=== PATIENT | male | born 2000 | race Caucasian/White ===

== ENCOUNTER 2019-10-15 14:30 | Emergency (ER) | payer SELFPAY ==
--- NOTE | 2019-10-15 16:42 | EDM.PDOCBH ---
ED HPI GENERAL MEDICAL PROBLEM - General Chief Complaint: Behavioral/Psych Stated Complaint: Mental Eval Time Seen by Provider: 10/15/19 14:35 Source of Information: Reports: Patient History Limitations: Reports: No Limitations - History of Present Illness INITIAL COMMENTS - FREE TEXT/NARRATIVE: Patient presented to the ED by law enforcement for a psych evaluation. Patient has a history of unknown psych disorder and he doesn't know what his diagnosis was and used to take medications but quit taking it almost a year ago. He jumps from topic to the other, looks anxious. He denies any suicidal and homicidal ideation. - Related Data Allergies Allergy/AdvReac Type Severity Reaction Status Date / Time No Known Allergies Allergy Verified 10/15/19 15:01 Home Meds: Home Meds Divalproex Sodium [Divalproex Sodium ER] 500 mg PO BID #60 tab.sr.24h 10/15/19 [ Rx] hydrOXYzine pamoate [Vistaril] 50 mg PO Q6H PRN #60 cap 10/15/19 [Rx] risperiDONE [Risperdal] 2 mg PO BEDTIME #30 tablet 10/15/19 [Rx] Past Medical History Psychiatric History: Reports: ADHD, Anxiety, Depression, Panic Attack Social & Family History - Family History Family Medical History: Noncontributory - Tobacco Use Smoking Status *Q: Current Every Day Smoker Years of Tobacco use: 4 Packs/Tins Daily: 1 - Caffeine Use Caffeine Use: Reports: Coffee, Soda, Tea - Recreational Drug Use Recreational Drug Use: Yes Recreational Drug Type: Reports: Marijuana/Hashish Recreational Drug Use Frequency: Weekly ED ROS GENERAL - Review of Systems Review Of Systems: See Below Constitutional: Reports: No Symptoms HEENT: Reports: No Symptoms Respiratory: Reports: No Symptoms Cardiovascular: Reports: No Symptoms Endocrine: Reports: No Symptoms GI/Abdominal: Reports: No Symptoms : Reports: No Symptoms Musculoskeletal: Reports: No Symptoms Skin: Reports: No Symptoms Neurological: Reports: No Symptoms Psychiatric: Reports: Anxiety, Depression, Mood Lability. Denies: Hallucinations, Homicidal Ideation, Suicidal Ideation ED EXAM, BEHAVIORAL HEALTH - Physical Exam Exam: See Below Exam Limited By: No Limitations General Appearance: Alert, No Apparent Distress Ears: Normal External Exam Nose: Normal Inspection, Normal Mucosa Throat/Mouth: Normal Inspection, Normal Lips, Normal Teeth Head: Atraumatic, Normocephalic Neck: Normal Inspection, Non-Tender, Full Range of Motion Respiratory/Chest: No Respiratory Distress, Lungs Clear, Normal Breath Sounds Cardiovascular: Normal Peripheral Pulses, Regular Rate, Rhythm, No Edema, No Gallop, No JVD, No Murmur GI/Abdominal: Normal Bowel Sounds, Soft, Non-Tender, No Organomegaly Back Exam: Normal Inspection, Full Range of Motion Extremities: Normal Inspection, Normal Range of Motion, Non-Tender Neurological: Alert, Normal Cognition COURSE, BEHAVIORAL HEALTH COMP - Course Vital Signs: Last Vital Signs Temp 36.8 C 10/15/19 14:30 Pulse 71 10/15/19 14:30 Resp 18 10/15/19 14:30 BP 134/71 10/15/19 14:30 Pulse Ox 100 10/15/19 14:30 Orders, Labs, Meds: Laboratory Tests 10/15/19 10/15/19 10/15/19 Range/Units 15:32 15:32 15:32 WBC 6.7 (4.5-12.0) X10-3/uL RBC 5.33 (4.30-5.75) x10(6)uL Hgb 16.3 (13.5-17.8) g/dL Hct 47.5 (30.0-51.3) % MCV 89.1 (80-96) fL MCH 30.5 (27.7-33.6) pg MCHC 34.2 (32.2-35.4) g/dL RDW 12.6 (11.5-15.5) % Plt Count 348 (125-369) X10(3)uL MPV 7.4 (7.4-10.4) fL Neut % (Auto) 54.6 (46-82) % Lymph % (Auto) 34.6 (13-37) % Wells % (Auto) 6.7 (4-12) % Eos % (Auto) 2 (1.0-5.0) % Baso % (Auto) 2 (0-2) % Neut # (Auto) 3.7 (1.6-8.3) # Lymph # (Auto) 2.3 (0.6-5.0) # Wells # (Auto) 0.5 (0.0-1.3) # Eos # (Auto) 0.1 (0.0-0.8) # Baso # (Auto) 0.1 (0.0-0.2) # Sodium 142 (135-145) mmol/L Potassium 3.8 (3.5-5.3) mmol/L Chloride 102 (100-110) mmol/L Carbon Dioxide 27 (21-32) mmol/L BUN 8 (7-18) mg/dL Creatinine 1.0 (0.70-1.30) mg/dL Est Cr Clr Drug Dosing 120.65 mL/min Estimated GFR (MDRD) > 60 (>60) BUN/Creatinine Ratio 8.0 L (9-20) Glucose 79 L (80-116) mg/dL Calcium 9.2 (8.6-10.2) mg/dL Total Bilirubin 0.6 (0.1-1.3) mg/dL AST 14 (5-25) IU/L ALT 16 (12-36) U/L Alkaline Phosphatase 87 (56-112) IU/L Total Protein 7.8 (6.0-8.0) g/dL Albumin 4.4 (3.5-5.2) g/dL Globulin 3.4 g/dL Albumin/Globulin Ratio 1.3 TSH, Ultra Sensitive 2.14 (0.36-3.74) IU/mL Urine Color (YELLOW) Urine Appearance (CLEAR) Urine pH (5.0-6.5) Ur Specific [place] (1.010-1.025) Urine Protein (NEGATIVE) mg/dL Urine Glucose (UA) (NORMAL) mg/dL Urine Ketones (NEGATIVE) mg/dL Urine Occult Blood (NEGATIVE) Urine Nitrite (NEGATIVE) Urine Bilirubin (NEGATIVE) Urine Urobilinogen (NEGATIVE) mg/dL Ur Leukocyte Esterase (NEGATIVE) Urine RBC (0-5) Urine WBC (0-5) Ur Squamous Epith Cells (NS,R,O) Urine Bacteria (NS) Urine Opiates Screen (NEGATIVE) Ur Oxycodone Screen (NEGATIVE) Ur Propoxyphene Screen (NEGATIVE) Ur Barbituates Screen (NEGATIVE) Ur Tricyclics Screen (NEGATIVE) Ur Phencyclidine Scrn (NEGATIVE) Ur Amphetamine Screen (NEGATIVE) Urine MDMA Screen (NEGATIVE) U Benzodiazepines Scrn (NEGATIVE) U Cocaine Metab Screen (NEGATIVE) U Marijuana (THC) Screen (NEGATIVE) Ethyl Alcohol < 0.03 (<0.03) % 10/15/19 10/15/19 Range/Units 15:43 15:45 WBC (4.5-12.0) X10-3/uL RBC (4.30-5.75) x10(6)uL Hgb (13.5-17.8) g/dL Hct (30.0-51.3) % MCV (80-96) fL MCH (27.7-33.6) pg MCHC (32.2-35.4) g/dL RDW (11.5-15.5) % Plt Count (125-369) X10(3)uL MPV (7.4-10.4) fL Neut % (Auto) (46-82) % Lymph % (Auto) (13-37) % Wells % (Auto) (4-12) % Eos % (Auto) (1.0-5.0) % Baso % (Auto) (0-2) % Neut # (Auto) (1.6-8.3) # Lymph # (Auto) (0.6-5.0) # Wells # (Auto) (0.0-1.3) # Eos # (Auto) (0.0-0.8) # Baso # (Auto) (0.0-0.2) # Sodium (135-145) mmol/L Potassium (3.5-5.3) mmol/L Chloride (100-110) mmol/L Carbon Dioxide (21-32) mmol/L BUN (7-18) mg/dL Creatinine (0.70-1.30) mg/dL Est Cr Clr Drug Dosing mL/min Estimated GFR (MDRD) (>60) BUN/Creatinine Ratio (9-20) Glucose (80-116) mg/dL Calcium (8.6-10.2) mg/dL Total Bilirubin (0.1-1.3) mg/dL AST (5-25) IU/L ALT (12-36) U/L Alkaline Phosphatase (56-112) IU/L Total Protein (6.0-8.0) g/dL Albumin (3.5-5.2) g/dL Globulin g/dL Albumin/Globulin Ratio TSH, Ultra Sensitive (0.36-3.74) IU/mL Urine Color Yellow (YELLOW) Urine Appearance Clear (CLEAR) Urine pH 8.0 H (5.0-6.5) Ur Specific [place] 1.010 (1.010-1.025) Urine Protein Negative (NEGATIVE) mg/dL Urine Glucose (UA) Normal (NORMAL) mg/dL Urine Ketones 15 H (NEGATIVE) mg/dL Urine Occult Blood Negative (NEGATIVE) Urine Nitrite Negative (NEGATIVE) Urine Bilirubin Negative (NEGATIVE) Urine Urobilinogen Normal (NEGATIVE) mg/dL Ur Leukocyte Esterase Negative (NEGATIVE) Urine RBC Not seen (0-5) Urine WBC 0-5 (0-5) Ur Squamous Epith Cells Not seen (NS,R,O) Urine Bacteria Rare H (NS) Urine Opiates Screen Negative (NEGATIVE) Ur Oxycodone Screen Negative (NEGATIVE) Ur Propoxyphene Screen Negative (NEGATIVE) Ur Barbituates Screen Negative (NEGATIVE) Ur Tricyclics Screen Negative (NEGATIVE) Ur Phencyclidine Scrn Negative (NEGATIVE) Ur Amphetamine Screen Negative (NEGATIVE) Urine MDMA Screen Negative (NEGATIVE) U Benzodiazepines Scrn Negative (NEGATIVE) U Cocaine Metab Screen Negative (NEGATIVE) U Marijuana (THC) Screen Negative (NEGATIVE) Ethyl Alcohol (<0.03) % Medications Discontinued Medications Generic Name Dose Route Start Last Admin Trade Name Freq PRN Reason Stop Dose Admin Divalproex Sodium 500 mg 10/15/19 17:45 10/15/19 18:01 Depakote PO 10/15/19 17:46 500 mg ONETIME ONE Administration Hydroxyzine HCl 25 mg 10/15/19 17:45 10/15/19 18:01 Atarax PO 10/15/19 17:46 25 mg ONETIME ONE Administration Risperidone 2 mg 10/15/19 17:47 10/15/19 18:01 Risperidal PO 10/15/19 17:48 2 mg ONETIME ONE Administration Re-Assessment/Re-Exam: Labs reviewed and discussed with patient. Psych consult was done with Abbi Leiva and suggested for patient to be treated outpatient since he didn't satisfy the criteria for inpatient psych treatment. first dose of his Risperdal 2 mg, divalproic acid ER 500 mg, vistaril 25 mg po was given in the ED. Departure - Departure Time of Disposition: 14:35 Disposition: Home, Self-Care 01 Condition: Good Clinical Impression: Anxiety, Depression, PTSD (post-traumatic stress disorder), Bipolar 1 disorder , MYKEL (generalized anxiety disorder) - Discharge Information Prescriptions: Divalproex Sodium [Divalproex Sodium ER] 500 mg PO BID #60 tab.sr.24h hydrOXYzine pamoate [Vistaril] 50 mg PO Q6H PRN #60 cap PRN Reason: Anxiety risperiDONE [Risperdal] 2 mg PO BEDTIME #30 tablet Instructions: Generalized Anxiety Disorder, Adult, Major Depressive Disorder, Adult, [id number] Referrals: Phyllis Stockton MD [Primary Care Provider] - Forms: ED Department Discharge Additional Instructions: please read discharge instructions on anxiety and depression follow up with your doctor this week or return to the ED if you are suicidal or homicidal risperidone 2 mg at bed time divalproic acid 500 mg twice daily vistaril 50 mg every 6 hours as needed for anxiety and sleep Sepsis Event Note - Evaluation Sepsis Screening Result: No Definite Risk - Focused Exam Date Exam was Performed: 10/16/19 Time Exam was Performed: 08:37
[2019-10-15] MEDS ORDERED: Divalproex Sodium Delayed-Release 500 MG Tab.CR PO ONE (17:45)
[2019-10-15] MEDS ORDERED: hydrOXYzine HCl 25 MG Tab PO ONE (17:45)
[2019-10-15] MEDS ORDERED: risperiDONE 1 MG Tab PO ONE (17:47)
== END 2019-10-15 18:00 | disposition home or self-care (01) ==
LOC: FB.ED 14:30
DX: F31.9 Bipolar disorder, unspecified (principal); F41.1 Generalized anxiety disorder; F43.10 Post-traumatic stress disorder, unspecified
CPT/HCPCS: 36415; 80053; 80305; 80307; 81001; 84443; 85025; 99283; 99285; A9270

== ENCOUNTER 2019-10-18 19:53 | Emergency (ER) | payer SELFPAY ==
--- NOTE | 2019-10-18 20:45 | EDM.PDOCBH ---
ED HPI GENERAL MEDICAL PROBLEM - General Chief Complaint: Behavioral/Psych Stated Complaint: MENTAL HEALTH Time Seen by Provider: 10/18/19 20:38 Source of Information: Reports: Patient History Limitations: Reports: No Limitations - History of Present Illness INITIAL COMMENTS - FREE TEXT/NARRATIVE: Patient has a h/o Bipolar disorder, ADHD, Anxiety, and Depression. He called the ED requesting assistance because he thought he may be having a panic attack. The ED RN called the police department, who then escorted the patient to the ED. Patient states he has had suicidal thoughts most days, most recently today. He has specific thoughts of cutting himself. The patient was treated in the ED on 10/15/19, and was prescribed Divalproex, Vistaril, and Risperdal. He did not fill the prescriptions, but states that he now wishes to "get back on his meds." Patient has not taken medications regularly x 3 months. - Related Data Allergies Allergy/AdvReac Type Severity Reaction Status Date / Time No Known Allergies Allergy Verified 10/18/19 20:17 Home Meds: Home Meds Divalproex Sodium [Divalproex Sodium ER] 500 mg PO BID #60 tab.sr.24h 10/15/19 [ Rx] hydrOXYzine pamoate [Vistaril] 50 mg PO Q6H PRN #60 cap 10/15/19 [Rx] risperiDONE [Risperdal] 2 mg PO BEDTIME #30 tablet 10/15/19 [Rx] Past Medical History Psychiatric History: Reports: ADHD, Anxiety, Bipolar, Depression, Panic Attack Social & Family History - Family History Family Medical History: Noncontributory - Tobacco Use Smoking Status *Q: Current Every Day Smoker Years of Tobacco use: 4 Packs/Tins Daily: 0.5 - Caffeine Use Caffeine Use: Reports: Coffee, Soda, Tea - Alcohol Use Alcohol Use History: Yes Alcohol Use in Last Twelve Months: Yes Alcohol Use Frequency: Rarely - Recreational Drug Use Recreational Drug Use: No ED ROS GENERAL - Review of Systems Review Of Systems: Comprehensive ROS is negative, except as noted in HPI. ED EXAM, BEHAVIORAL HEALTH - Physical Exam Exam: See Below Exam Limited By: No Limitations General Appearance: Alert, WD/WN, No Apparent Distress, Anxious Eye Exam: Bilateral Eye: EOMI, PERRL Ears: Normal External Exam Nose: Normal Inspection Throat/Mouth: Normal Inspection, No Airway Compromise Head: Atraumatic, Normocephalic Neck: Full Range of Motion Respiratory/Chest: No Respiratory Distress, Lungs Clear, Normal Breath Sounds Cardiovascular: Regular Rate, Rhythm, No Murmur GI/Abdominal: No Distention Back Exam: Full Range of Motion Extremities: Normal Range of Motion Neurological: Alert, Normal Cognition, No Motor/Sensory Deficits, Oriented x 3 Psychiatric: Alert, Oriented, Flat Affect Skin Exam: Warm, Dry, Intact COURSE, BEHAVIORAL HEALTH COMP - Course Vital Signs: Last Vital Signs Temp 36.7 C 10/18/19 23:00 Pulse 78 10/18/19 23:00 Resp 15 10/18/19 23:00 BP 131/61 10/18/19 23:00 Pulse Ox 100 10/18/19 23:00 Orders, Labs, Meds: Laboratory Tests 10/18/19 10/18/19 10/18/19 Range/Units 20:10 20:10 20:44 WBC 9.1 (4.5-12.0) X10-3/uL RBC 5.25 (4.30-5.75) x10(6)uL Hgb 15.9 (13.5-17.8) g/dL Hct 47.2 (30.0-51.3) % MCV 89.9 (80-96) fL MCH 30.3 (27.7-33.6) pg MCHC 33.7 (32.2-35.4) g/dL RDW 12.9 (11.5-15.5) % Plt Count 357 (125-369) X10(3)uL MPV 7.5 (7.4-10.4) fL Neut % (Auto) 69.5 (46-82) % Lymph % (Auto) 21.7 (13-37) % [place] % (Auto) 4.5 (4-12) % Eos % (Auto) 1 (1.0-5.0) % Baso % (Auto) 3 H (0-2) % Neut # (Auto) 6.3 (1.6-8.3) # Lymph # (Auto) 2.0 (0.6-5.0) # [place] # (Auto) 0.4 (0.0-1.3) # Eos # (Auto) 0.1 (0.0-0.8) # Baso # (Auto) 0.3 H (0.0-0.2) # Sodium (135-145) mmol/L Potassium (3.5-5.3) mmol/L Chloride (100-110) mmol/L Carbon Dioxide (21-32) mmol/L BUN (7-18) mg/dL Creatinine (0.70-1.30) mg/dL Est Cr Clr Drug Dosing mL/min Estimated GFR (MDRD) (>60) BUN/Creatinine Ratio (9-20) Glucose (80-116) mg/dL Calcium (8.6-10.2) mg/dL Total Bilirubin (0.1-1.3) mg/dL AST (5-25) IU/L ALT (12-36) U/L Alkaline Phosphatase (56-112) IU/L Total Protein (6.0-8.0) g/dL Albumin (3.5-5.2) g/dL Globulin g/dL Albumin/Globulin Ratio TSH, Ultra Sensitive (0.36-3.74) IU/mL Urine Color Yellow (YELLOW) Urine Appearance Clear (CLEAR) Urine pH 7.0 H (5.0-6.5) Ur Specific [place] 1.005 L (1.010-1.025) Urine Protein Negative (NEGATIVE) mg/dL Urine Glucose (UA) Normal (NORMAL) mg/dL Urine Ketones 15 H (NEGATIVE) mg/dL Urine Occult Blood Negative (NEGATIVE) Urine Nitrite Negative (NEGATIVE) Urine Bilirubin Negative (NEGATIVE) Urine Urobilinogen Normal (NEGATIVE) mg/dL Ur Leukocyte Esterase Negative (NEGATIVE) Urine RBC Not seen (0-5) Urine WBC 0-5 (0-5) Ur Squamous Epith Cells Rare (NS,R,O) Urine Bacteria Rare H (NS) Salicylates (<2.8) mg/dL Urine Opiates Screen Negative (NEGATIVE) Ur Oxycodone Screen Negative (NEGATIVE) Ur Propoxyphene Screen Negative (NEGATIVE) Acetaminophen (<2) ug/mL Ur Barbituates Screen Negative (NEGATIVE) Ur Tricyclics Screen Negative (NEGATIVE) Ur Phencyclidine Scrn Negative (NEGATIVE) Ur Amphetamine Screen Negative (NEGATIVE) Urine MDMA Screen Negative (NEGATIVE) U Benzodiazepines Scrn Negative (NEGATIVE) U Cocaine Metab Screen Negative (NEGATIVE) U Marijuana (THC) Screen Negative (NEGATIVE) Ethyl Alcohol (<0.03) % 10/18/19 10/18/19 Range/Units 20:44 20:44 WBC (4.5-12.0) X10-3/uL RBC (4.30-5.75) x10(6)uL Hgb (13.5-17.8) g/dL Hct (30.0-51.3) % MCV (80-96) fL MCH (27.7-33.6) pg MCHC (32.2-35.4) g/dL RDW (11.5-15.5) % Plt Count (125-369) X10(3)uL MPV (7.4-10.4) fL Neut % (Auto) (46-82) % Lymph % (Auto) (13-37) % [place] % (Auto) (4-12) % Eos % (Auto) (1.0-5.0) % Baso % (Auto) (0-2) % Neut # (Auto) (1.6-8.3) # Lymph # (Auto) (0.6-5.0) # [place] # (Auto) (0.0-1.3) # Eos # (Auto) (0.0-0.8) # Baso # (Auto) (0.0-0.2) # Sodium 143 (135-145) mmol/L Potassium 3.9 (3.5-5.3) mmol/L Chloride 102 (100-110) mmol/L Carbon Dioxide 27 (21-32) mmol/L BUN 5 L (7-18) mg/dL Creatinine 1.0 (0.70-1.30) mg/dL Est Cr Clr Drug Dosing 119.95 mL/min Estimated GFR (MDRD) > 60 (>60) BUN/Creatinine Ratio 5.0 L (9-20) Glucose 89 (80-116) mg/dL Calcium 9.4 (8.6-10.2) mg/dL Total Bilirubin 0.6 (0.1-1.3) mg/dL AST 14 (5-25) IU/L ALT 15 (12-36) U/L Alkaline Phosphatase 78 (56-112) IU/L Total Protein 7.6 (6.0-8.0) g/dL Albumin 4.4 (3.5-5.2) g/dL Globulin 3.2 g/dL Albumin/Globulin Ratio 1.4 TSH, Ultra Sensitive 1.34 (0.36-3.74) IU/mL Urine Color (YELLOW) Urine Appearance (CLEAR) Urine pH (5.0-6.5) Ur Specific [place] (1.010-1.025) Urine Protein (NEGATIVE) mg/dL Urine Glucose (UA) (NORMAL) mg/dL Urine Ketones (NEGATIVE) mg/dL Urine Occult Blood (NEGATIVE) Urine Nitrite (NEGATIVE) Urine Bilirubin (NEGATIVE) Urine Urobilinogen (NEGATIVE) mg/dL Ur Leukocyte Esterase (NEGATIVE) Urine RBC (0-5) Urine WBC (0-5) Ur Squamous Epith Cells (NS,R,O) Urine Bacteria (NS) Salicylates 3.6 (<2.8) mg/dL Urine Opiates Screen (NEGATIVE) Ur Oxycodone Screen (NEGATIVE) Ur Propoxyphene Screen (NEGATIVE) Acetaminophen < 2 L (<2) ug/mL Ur Barbituates Screen (NEGATIVE) Ur Tricyclics Screen (NEGATIVE) Ur Phencyclidine Scrn (NEGATIVE) Ur Amphetamine Screen (NEGATIVE) Urine MDMA Screen (NEGATIVE) U Benzodiazepines Scrn (NEGATIVE) U Cocaine Metab Screen (NEGATIVE) U Marijuana (THC) Screen (NEGATIVE) Ethyl Alcohol < 0.03 (<0.03) % Medications Discontinued Medications Generic Name Dose Route Start Last Admin Trade Name Freq PRN Reason Stop Dose Admin Hydroxyzine Pamoate 50 mg 10/18/19 22:48 10/18/19 22:54 Vistaril PO 10/18/19 22:49 50 mg ONETIME ONE Administration Risperidone 2 mg 10/18/19 23:28 10/19/19 01:25 Risperidal PO 10/18/19 23:29 Not Given .ONCE ONE Risperidone Confirm 10/18/19 23:37 10/19/19 01:25 Risperidal Administered 10/18/19 23:38 Not Given Dose 2 mg .ROUTE .STK-MED ONE Risperidone 2 mg 10/18/19 23:45 10/18/19 23:44 Risperidal PO 10/18/19 23:46 2 mg ONETIME ONE Administration Re-Assessment/Re-Exam: 8699: Patient was initially willing to be admitted voluntarily to an inpatient psychiatric facility for evaluation and treatment, however he changed his mind and decided he would do this at a later date. Because the patient stated to the ED RN and myself that he was having suicidal thoughts, he is placed on an Emergency Hold. 0430: Dr. Gold accepts patient for transfer to [facility] in [place], [place]. Medical Clearance: 10/18/19 21:13 Patient is medically cleared for psychiatric evaluation and treatment. Departure - Departure Time of Disposition: 04:35 Disposition: DC/Tfer to Psych Hosp/Unit 65 Condition: Fair Clinical Impression: Suicidal ideation - Discharge Information *PRESCRIPTION DRUG MONITORING PROGRAM REVIEWED*: Yes *COPY OF PRESCRIPTION DRUG MONITORING REPORT IN PATIENT SEAN: Not Applicable Referrals: PCP,None [Primary Care Provider] - Forms: ED Department Discharge Sepsis Event Note - Evaluation Sepsis Screening Result: No Definite Risk - Focused Exam Vital Signs: Vital Signs Temp Pulse Resp BP BP Pulse Ox 10/18/19 23:00 36.7 C 78 15 131/61 100 10/18/19 19:55 36.8 C 86 16 122/72 98 Date Exam was Performed: 10/19/19 Time Exam was Performed: 04:27
[2019-10-18 21:03] LABS: ACETAMINOPHEN < 2 ug/mL (<2)
[2019-10-18] MEDS ORDERED: risperiDONE 1 MG Tab PO ONE (23:28)
[2019-10-18] MEDS ORDERED: risperiDONE 0.5 MG Tab ONE (23:37)
[2019-10-18] MEDS ORDERED: risperiDONE 0.5 MG Tab PO ONE (23:45)
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
== END 2019-10-19 18:02 ==
LOC: FB.ED 19:53
DX: R45.851 Suicidal ideations (principal); F17.210 Nicotine dependence, cigarettes, uncomplicated; Z79.899 Other long term (current) drug therapy
CPT/HCPCS: 36415; 80053; 80305-QW; 80307; 81001; 84443; 85025; 99284; 99285; A9270-GY

== ENCOUNTER 2019-11-12 10:55 | Emergency (ER) | payer MEDICAID, OTHER ==
--- NOTE | 2019-11-12 12:31 | EDM.PDOCBH ---
ED HPI GENERAL MEDICAL PROBLEM - General Chief Complaint: Behavioral/Psych Stated Complaint: EVALUATION Time Seen by Provider: 11/12/19 12:00 Source of Information: Reports: Patient History Limitations: Reports: No Limitations - History of Present Illness INITIAL COMMENTS - FREE TEXT/NARRATIVE: Orquidea comes into [facility] ED for medical clearance to be transferred to a Facility for managment of his SchizoAffective Disorder Bipolar Type. ED nurse took messaging from Design Lead earlier this am, records pending. He is reporting sxs of doom, hopelessness, apathy, lethargy, and social isolation. He denies hallucinations, delusions, intrusive thoughts of self harm. He prefers to attempt sleep during the interview. He does not endorse any respiratory or gastrointestinal sxs. - Related Data Allergies Allergy/AdvReac Type Severity Reaction Status Date / Time No Known Allergies Allergy Verified 10/18/19 20:17 Home Meds: Home Meds Divalproex Sodium [Divalproex Sodium ER] 500 mg PO BID #60 tab.sr.24h 10/15/19 [ Rx] hydrOXYzine pamoate [Vistaril] 50 mg PO Q6H PRN #60 cap 10/15/19 [Rx] risperiDONE [Risperdal] 2 mg PO BEDTIME #30 tablet 10/15/19 [Rx] Past Medical History Psychiatric History: Reports: ADHD, Anxiety, Bipolar, Depression, Panic Attack Social & Family History - Family History Family Medical History: Noncontributory - Caffeine Use Caffeine Use: Reports: Coffee, Soda, Tea ED ROS GENERAL - Review of Systems Review Of Systems: Comprehensive ROS is negative, except as noted in HPI. ED EXAM, BEHAVIORAL HEALTH - Physical Exam Exam: See Below Exam Limited By: Other (somnolence) General Appearance: Alert, WD/WN, No Apparent Distress, Lethargic Eye Exam: Bilateral Eye: EOMI, Normal Inspection, PERRL Ears: Normal External Exam, Normal Canal, Normal TMs Nose: Normal Inspection Throat/Mouth: Normal Inspection, Normal Oropharynx Head: Normocephalic Neck: Normal Inspection, Supple, Non-Tender Respiratory/Chest: Lungs Clear, Normal Breath Sounds Cardiovascular: Regular Rate, Rhythm GI/Abdominal: Normal Bowel Sounds, Soft, Non-Tender, No Organomegaly, No Distention, No Mass (Male) Exam: Deferred Rectal (Males) Exam: Deferred Back Exam: Normal Inspection Extremities: Normal Inspection Neurological: Alert, CN II-XII Intact, Normal Reflexes, No Motor/Sensory Deficits, Oriented x 3 Psychiatric: Alert, Oriented, Depressed Mood, Flat Affect, Inattentive, Poor Eye Contact, Withdrawn Skin Exam: Warm, Dry, Intact, Normal color, No rash COURSE, BEHAVIORAL HEALTH COMP - Course Vital Signs: Orquidea does not present with any medical urgency of destabilization at this time. He is medically cleared to return to his apartment, supervised by his Shank Pinner until a placement can be secured. Current issues complicated by recent Governor's Policy of Stay at Home. Departure - Departure Time of Disposition: 15:33 Disposition: Home, Self-Care 01 Condition: Fair Clinical Impression: Schizoaffective disorder Qualifiers: Schizoaffective disorder type: bipolar Qualified Code(s): F25.0 - Schizoaffective disorder, bipolar type - Discharge Information *PRESCRIPTION DRUG MONITORING PROGRAM REVIEWED*: Not Applicable *COPY OF PRESCRIPTION DRUG MONITORING REPORT IN PATIENT SEAN: Not Applicable Forms: ED Department Discharge Sepsis Event Note - Focused Exam Date Exam was Performed: 11/12/19 Time Exam was Performed: 15:31 - Problem List & Annotations (1) PTSD (post-traumatic stress disorder) SNOMED Code(s): 45142319 Code(s): F43.10 - POST-TRAUMATIC STRESS DISORDER, UNSPECIFIED Status: Acute Current Visit: No (2) Bipolar 1 disorder SNOMED Code(s): 201336168 Code(s): F31.9 - BIPOLAR DISORDER, UNSPECIFIED Status: Acute Current Visit: No (3) Schizoaffective disorder SNOMED Code(s): 22531240 Code(s): F25.9 - SCHIZOAFFECTIVE DISORDER, UNSPECIFIED Status: Acute Current Visit: Yes Qualifiers: Schizoaffective disorder type: bipolar Qualified Code(s): F25.0 - Schizoaffective disorder, bipolar type - Problem List Review Problem List Initiated/Reviewed/Updated: Yes - Assessment/Plan Plan: Follow up with Shank Pinner and consultants.
== END 2019-11-12 16:00 | disposition home or self-care (01) ==
LOC: FB.ED 10:55
DX: F25.0 Schizoaffective disorder, bipolar type (principal); F31.9 Bipolar disorder, unspecified; F43.10 Post-traumatic stress disorder, unspecified; Z79.899 Other long term (current) drug therapy
CPT/HCPCS: 99283

== ENCOUNTER 2021-10-18 07:19 | Emergency (ER) | payer MEDICARE, MEDICAID | END 2021-10-18 09:00 | disposition left against medical advice (07) | LOC: FB.ED 07:19 | DX: F28 Other psychotic disorder not due to a substance or known physiological condition (principal); Z53.21 Procedure and treatment not carried out due to patient leaving prior to being seen by health care provider | CPT/HCPCS: 80307 ==

== ENCOUNTER 2021-10-26 12:59 | Emergency (ER) | payer MEDICARE, MEDICAID | END 2021-10-26 14:22 | LOC: FB.ED 12:59 | DX: L08.9 Local infection of the skin and subcutaneous tissue, unspecified (principal); Z53.21 Procedure and treatment not carried out due to patient leaving prior to being seen by health care provider ==

== ENCOUNTER 2021-11-01 11:59 | Emergency (ER) | payer MEDICARE, MEDICAID | END 2021-11-01 13:28 | disposition home or self-care (01) | LOC: FB.ED 11:59 | DX: F23 Brief psychotic disorder (principal); F32.A Depression, unspecified; F41.9 Anxiety disorder, unspecified | CPT/HCPCS: 99282; 99284 ==